=== PATIENT | female | born 1965 ===

== ENCOUNTER 2020-09-02 10:51 | Day surgery (SDC) | payer OTHER | END 2020-09-02 21:00 | disposition home or self-care (01) | LOC: CIR.AMB 10:51 → O/R 10:51 → CIR.AMB 11:15 | PROVIDERS: ATTEND Obstetrics & Gynecology Obstetrics | DX: N72 Inflammatory disease of cervix uteri (principal); Z20.822 Contact with and (suspected) exposure to COVID-19 ==